=== PATIENT | male | born 1975 | race Two or more races ===

== ENCOUNTER 2024-05-20 06:12 | Day surgery (SDC) | payer OTHER ==
[2024-05-20] MEDS ORDERED: LIDOCAINE 1% INJ 50 ML MDV IJ ONE (06:24)
[2024-05-20] MEDS ORDERED: ANESTHESIA TRAY IN PYXIS 1 EA TRAY MC ONE (06:25)
[2024-05-20] MEDS ORDERED: BUPIVACAINE 0.5 % PF 150 MG/30 ML VIAL ONE (06:25)
[2024-05-20] MEDS ORDERED: FENTANYL PF 100MCG/2ML AMPUL ONE (07:35)
[2024-05-20] MEDS ORDERED: HYDROCODONE/APAP 5/325MG TABLET ONE (07:59)
[2024-05-20] MEDS ORDERED: HYDROCODONE/APAP 5/325MG TABLET PO ONE (08:30)
== END 2024-05-20 08:45 | disposition home or self-care (01) ==
LOC: DS 06:12
PROVIDERS: ATTEND Specialist
DX: M24.612 Ankylosis, left shoulder (principal)
CPT/HCPCS: 23700; J2704; J3010; J3490